=== PATIENT | female | born 1980 | race Caucasian/White ===

== ENCOUNTER 2016-12-15 15:49 | Emergency (ER) | payer MEDICAID ==
[2016-12-15 18:28] LABS: APPEARANCE CLEAR (CLEAR); BILIRUBIN NEGATIVE (NEGATIVE); COLOR YELLOW (YELLOW); GLUCOSE 1000 mg/dL (NEGATIVE); KETONE NEGATIVE (NEGATIVE); LEUKOCYTE ESTERASE NEGATIVE (NEGATIVE); NITRITE NEGATIVE (NEGATIVE); PROTEIN NEGATIVE (NEGATIVE); UROBILINOGEN NORMAL (NORMAL)
[2016-12-15 18:52] LABS: BASOPHILS 0.2 % (0.0-2.0); EOSINOPHILS 1.4 % (0-7); HEMATOCRIT 45.3 % (36.0-48.0); HEMOGLOBIN 15.2 g/dL (12-16); IMMATURE GRANULOCYTES 0.2 % (0-5); MCH 30.6 pg (26.0-34.0); MCHC 33.6 g/dL (31.0-37.0); MCV 91.3 fL (80.0-100.0); MEAN PLATELET VOLUME 10.2 fL (7.4-10.4); MONOCYTES 7.8 % (2-11); NEUTROPHILS 62.4 % (40-80); PLATELET COUNT 217 10x3/uL (130-400); RBC 4.96 10x6/uL (4.00-5.40); RDW 12.1 % (11.5-14.5); WBC 12.6 10x3/uL (4.8-10.8)
[2016-12-15 19:08] LABS: ALBUMIN 3.8 g/dL (3.4-5.0); ALKALINE PHOSPHATASE 48 U/L (46-116); ALT (SGPT) 36 U/L (10-68); BILIRUBIN - TOTAL 0.38 mg/dL (0.2-1.3); CALC OSMOLALITY 284 mosm/kg (275-300); CALCIUM 9.1 mg/dL (8.5-10.1); CARBON DIOXIDE 27.9 mmol/L (21.0-32.0); CHLORIDE - SERUM 104 mmol/L (98-107); CREATININE - SERUM 0.8 mg/dL (0.6-1.3); POTASSIUM - SERUM 3.6 mmol/L (3.5-5.1); SODIUM 142 mmol/L (136-145); UREA NITROGEN 12 mg/dL (7-18); eGFR NON AFRICAN AMERICAN 86 mL/min (90-120)
[2016-12-15 19:09] LABS: GLUCOSE 138 mg/dL (74-106)
[2016-12-15 19:11] LABS: CREATINE KINASE 123 UL (21-215)
[2016-12-15 19:12] LABS: TROPONIN-I < 0.017 ng/mL (0.000-0.060)
[2016-12-15 19:30] LABS: UDS - AMPHET NEGATIVE QUAL (NEGATIVE); UDS - BARB NEGATIVE QUAL (NEGATIVE); UDS - BENZO NEGATIVE QUAL (NEGATIVE); UDS - COCAINE NEGATIVE QUAL (NEGATIVE); UDS - METH NEGATIVE QUAL (NEGATIVE); UDS - OPIATE NEGATIVE QUAL (NEGATIVE); UDS - PCP NEGATIVE QUAL (NEGATIVE); UDS - THC NEGATIVE QUAL (NEGATIVE)
== END 2016-12-15 20:04 | disposition home or self-care (01) ==
LOC: D.ER 15:49
PROVIDERS: Emergency Medicine; Physician Assistant
DX: I10 Essential (primary) hypertension (principal); E11.9 Type 2 diabetes mellitus without complications

== ENCOUNTER 2017-05-19 17:38 | Emergency (ER) | payer OTHER | END 2017-05-19 18:34 | disposition left against medical advice (07) | LOC: D.ER 17:38 | DX: Z02.9 Encounter for administrative examinations, unspecified (principal) ==

== ENCOUNTER → 2018-01-07 08:28 | Outpatient (CLI) | payer MEDICAID ==
[2018-01-07 09:10] LABS: BILIRUBIN - DIRECT 0.07 mg/dL (0.00-0.30); BILIRUBIN - INDIRECT 0.39 mg/dL (0.00-1.00); BILIRUBIN - TOTAL 0.46 mg/dL (0.2-1.3); PROTEIN - SERUM 7.5 g/dL (6.4-8.2)
== END | disposition home or self-care (01) ==
LOC: D.LAB 01-02 08:45 → D.US 01-02 09:00 → D.NM 01-02 09:30 → D.LAB 08:28
PROVIDERS: Internal Medicine Gastroenterology
DX: R10.9 Unspecified abdominal pain (principal); R11.2 Nausea with vomiting, unspecified

== ENCOUNTER → 2018-09-18 09:38 | Outpatient (CLI) | payer MEDICAID ==
[2018-09-18 10:43] LABS: ALBUMIN 3.7 g/dL (3.4-5.0); BILIRUBIN - DIRECT 0.11 mg/dL (0.00-0.30); BILIRUBIN - INDIRECT 0.34 mg/dL (0.00-1.00); BILIRUBIN - TOTAL 0.45 mg/dL (0.2-1.3); PROTEIN - SERUM 7.5 g/dL (6.4-8.2)
== END | disposition home or self-care (01) ==
LOC: D.US 07-08 09:30 → D.LAB 07-08 10:00 → D.US 09:30
PROVIDERS: Internal Medicine Gastroenterology
DX: K76.0 Fatty (change of) liver, not elsewhere classified (principal)

== ENCOUNTER → 2019-03-18 08:25 | Outpatient (CLI) | payer OTHER ==
[~2019-03-18 08:25] MED LIST: CALCIUM 250+D T1 TAB PO; DILAUDID2 MG PO; GLUCOPHAGE1000 MG PO; GLYXAMBI 25 MG1 EACH PO; OMEPRAZOLE20 M1 PO; PEPCID AC20 MG PO; PRENAVITE1 TAB PO; TENORMIN50 MG PO
[2019-03-18 09:30] LABS: BILIRUBIN - DIRECT 0.17 mg/dL (0.00-0.30); BILIRUBIN - INDIRECT 0.43 mg/dL (0.00-1.00); BILIRUBIN - TOTAL 0.6 mg/dL (0.2-1.3)
== END | disposition home or self-care (01) ==
LOC: D.US 08:25
PROVIDERS: Internal Medicine Gastroenterology
DX: R94.5 Abnormal results of liver function studies (principal); K76.0 Fatty (change of) liver, not elsewhere classified

== ENCOUNTER → 2019-04-09 07:19 | Outpatient (CLI) | payer OTHER | END | disposition home or self-care (01) | LOC: D.NM 07:19 | PROVIDERS: ATTEND Internal Medicine Gastroenterology | DX: K80.20 Calculus of gallbladder without cholecystitis without obstruction (principal); R11.0 Nausea; R12 Heartburn ==

== ENCOUNTER 2019-06-27 05:54 | Day surgery (SDC) | payer OTHER ==
[~2019-06-27] VITALS: Ht 160 cm; Wt 112.3 kg
[~2019-06-27 05:54] MED LIST changes: -DILAUDID2 MG PO
[2019-06-27 06:35] LABS: BASOPHILS 0.4 % (0-2); EOSINOPHILS 1.5 % (0-7); HEMATOCRIT 45.6 % (36.0-48.0); HEMOGLOBIN 15.9 g/dL (12-16); IMMATURE GRANULOCYTES 0.4 % (0-5); LYMPHOCYTES 26.6 % (15-50); MCH 31.1 pg (26.0-34.0); MCHC 34.9 g/dL (31.0-37.0); MCV 89.2 fL (80.0-100.0); MEAN PLATELET VOLUME 10.5 fL (7.4-10.4); MONOCYTES 10.3 % (2-11); NEUTROPHILS 60.8 % (40-80); PLATELET COUNT 220 10x3/uL (130-400); RBC 5.11 10x6/uL (4.00-5.40); RDW 12.2 % (11.5-14.5); WBC 10.6 10x3/uL (4.8-10.8)
[2019-06-27 06:36] LABS: CALC OSMOLALITY 282 mosm/kg (275-300); CARBON DIOXIDE 25.6 mmol/L (21.0-32.0); CHLORIDE - SERUM 104 mmol/L (98-107); CREATININE - SERUM 0.7 mg/dL (0.6-1.3); POTASSIUM - SERUM 4.1 mmol/L (3.5-5.1); SODIUM 140 mmol/L (136-145); UREA NITROGEN 10 mg/dL (7-18); eGFR NON AFRICAN AMERICAN > 90 mL/min (90-120)
[2019-06-27 06:40] LABS: GLUCOSE 192 mg/dL (74-106)
[2019-06-27 07:21] VITALS: BP 143/92; Ht 160 cm; Wt 112.3 kg
[2019-06-27 07:40] LABS: HCG URINE NEGATIVE (NEGATIVE)
[2019-06-27] MEDS ORDERED: DILAUDID2 MG PO (08:49)
--- NOTE | 2019-06-27 14:01 | NUR ---
1150 AWAKE AND ALERT. VOIDED WITHOUT DIFFICULTY 1230 RATES PAIN A 3. IV D/C'D WITH CANNULA INTACT. DISCHARGE INSTRUCTIONS GIVEN. NO C/O
--- NOTE | 2019-07-01 08:10 | OP ---
PATIENT NAME: TSERING ATKINS MEDICAL RECORD: [id number] :81 LOCATION:D.OPS ADMISSION DATE: SURGEON: CHRIS LEA MD DATE OF OPERATION: 06/27/2019 PREOPERATIVE DIAGNOSES: 1. Gallstones. 2. Hypertension. 3. Diabetes mellitus. 4. Morbid obesity with a BMI of 44. POSTOPERATIVE DIAGNOSES: 1. Gallstones. 2. Hypertension. 3. Diabetes mellitus. 4. Morbid obesity with a BMI of 44. PROCEDURE: Laparoscopic cholecystectomy. SURGEON: Chris Lea MD REPORT OF PROCEDURE: The patient's abdomen was prepped and draped in sterile fashion. A cutdown was made on the superior aspect of the umbilicus, 0 Vicryls were placed in the fascia bilaterally and the fascia was incised with 15-blade. I then bluntly entered the peritoneal cavity and placed a 12-mm Hussein port. Under direct visualization, a 5 mm trocar was placed in the epigastrium and 2 more 5-mm trocars were placed in the right subcostal region. The gallbladder was grasped and elevated. The cystic artery and cystic duct were dissected free and these were clipped proximally and distally and ligated in standard fashion. The gallbladder was then taken off the liver bed using electrocautery and placed into the right upper quadrant. Any bleeding from the liver bed was then treated with electrocautery. We irrigated out the right upper quadrant. We then removed the ports and insufflation and the gallbladder was taken out through the umbilicus. The umbilical fascia was closed with interrupted 0 Vicryls times 3. The wounds were then irrigated out with normal saline and infused with 10 mL of 0.25% Marcaine with epinephrine. The skin incisions were all closed with subcutaneous 5-0 Monocryl and dressed appropriately. COMPLICATIONS: None. CONDITION: Stable. ANESTHESIA: General endotracheal and local. BLOOD LOSS: Minimal. TRANSINT:[id number] Voice Confirmation ID: [id number] DOCUMENT ID: [id number] OPERATIVE REPORT [id number] MILLYTSERING Lisa CHRIS LEA MD at 0810 CC: [place] MD [id number] DICTATION DATE: 06/27/19 0854 [employer] SERV[employer] ADVISOR: 06/27/19 0930 [facility] 06/27/19 [facility] [address] [place] [address]
== END 2019-06-27 13:00 | disposition home or self-care (01) ==
LOC: D.OPS 05:54 → D.PAN 08:45 → D.OPS 08:45
PROVIDERS: ATTEND Surgery
DX: K80.80 Other cholelithiasis without obstruction (principal); E66.01 Morbid (severe) obesity due to excess calories; Z68.41 Body mass index [BMI] 40.0-44.9, adult; E11.9 Type 2 diabetes mellitus without complications; I10 Essential (primary) hypertension

== ENCOUNTER → 2019-08-21 08:17 | Outpatient (CLI) | payer OTHER ==
[2019-06-27 07:21] VITALS: BMI 43.8
[~2019-08-21 08:17] MED LIST changes: +DILAUDID2 MG PO
[2019-08-21 08:53] LABS: ALBUMIN 3.6 g/dL (3.4-5.0); BILIRUBIN - DIRECT 0.15 mg/dL (0.00-0.30); BILIRUBIN - INDIRECT 0.39 mg/dL (0.00-1.00); BILIRUBIN - TOTAL 0.54 mg/dL (0.2-1.3); PROTEIN - SERUM 7.2 g/dL (6.4-8.2)
== END | disposition home or self-care (01) ==
LOC: D.US 08:17
PROVIDERS: ATTEND Internal Medicine Gastroenterology
DX: K76.0 Fatty (change of) liver, not elsewhere classified (principal)

== ENCOUNTER → 2019-08-25 11:56 | Outpatient (CLI) | payer OTHER ==
[2019-06-27 07:21] VITALS: BMI 43.8
[2019-08-26 10:10] LABS: HEPATITIS C ANTIBODY 0.1 S/CO RAT (0.0-0.9)
== END | disposition home or self-care (01) ==
LOC: D.LAB 11:56
PROVIDERS: ATTEND Internal Medicine Gastroenterology
DX: R74.8 Abnormal levels of other serum enzymes (principal)

== ENCOUNTER → 2020-07-28 08:28 | Outpatient (CLI) | payer OTHER ==
[2019-06-27 07:21] VITALS: BMI 43.8
[2020-07-28 09:22] LABS: ALBUMIN 3.5 g/dL (3.4-5.0); BILIRUBIN - DIRECT 0.13 mg/dL (0.00-0.30); BILIRUBIN - INDIRECT 0.45 mg/dL (0.00-1.00); BILIRUBIN - TOTAL 0.58 mg/dL (0.2-1.3); PROTEIN - SERUM 7.1 g/dL (6.4-8.2)
== END | disposition home or self-care (01) ==
LOC: D.US 06-25 08:30
PROVIDERS: ATTEND Internal Medicine Gastroenterology
DX: K76.0 Fatty (change of) liver, not elsewhere classified (principal)

== ENCOUNTER → 2021-01-17 08:22 | Outpatient (CLI) | payer OTHER ==
[2020-10-15 08:52] VITALS: BMI 42.6
[~2021-01-17 08:22] MED LIST changes: +HYDROCODON-ACE1 EAC7 PO
[2021-01-17 09:38] LABS: ALBUMIN 3.8 g/dL (3.4-5.0); BILIRUBIN - DIRECT 0.08 mg/dL (0.00-0.30); BILIRUBIN - INDIRECT 0.33 mg/dL (0.00-1.00); BILIRUBIN - TOTAL 0.41 mg/dL (0.2-1.3); PROTEIN - SERUM 7.8 g/dL (6.4-8.2)
== END | disposition home or self-care (01) ==
LOC: D.US 08:22
PROVIDERS: ATTEND Internal Medicine Gastroenterology
DX: K76.0 Fatty (change of) liver, not elsewhere classified (principal)